=== PATIENT | female | born 1970 | race Caucasian/White ===

== ENCOUNTER 2017-06-13 11:39 | Emergency (ER) | payer BC ==
[2017-06-13 11:43] VITALS: TEMP 97.8
--- NOTE | 2017-06-13 12:29 | ED ---
Extremity Problem HPI - General Chief complaint: Extremity Problem,Nontraumatic Stated complaint: Knee Pain Time Seen by Provider: 06/13/17 11:45 Source: patient, RN notes reviewed Mode of arrival: ambulatory Limitations: no limitations - History of Present Illness Initial comments: 46-year-old female presents emergency department for chief complaint of knee pain. She's been having ongoing knee pain for a while worsen over the last 2 months. She has had [address] Angel. Patient states that she has not seen orthopedic surgeon recently. She states that she stands on her feet 8-10 hours a day at work. He states is progressively getting worse more swollen. She feels some pain behind her left knee. Patient denies any paresthesias. Denies any back pain. - Related Data Home Medications Medication Instructions Recorded Confirmed Naproxen 500 mg PO BID 06/13/17 06/13/17 Previous Rx's Medication Instructions Recorded Hydrocodone/Acetaminophen [Sloan 1 tab PO Q6HR PRN #12 tab 06/13/17 5-325] Ibuprofen [Motrin] 600 mg PO Q8HR PRN #30 tab 06/13/17 predniSONE 50 mg PO DAILY #5 tab 06/13/17 Allergies Allergy/AdvReac Type Severity Reaction Status Date / Time amoxicillin Allergy Unknown Verified 06/13/17 11:53 Review of Systems ROS Statement: Those systems with pertinent positive or pertinent negative responses have been documented in the HPI. ROS Other: All systems not noted in ROS Statement are negative. Past Medical History Past Medical History: Hyperlipidemia Additional Past Medical History / Comment(s): hemorrhoids History of Any Multi-Drug Resistant Organisms: None Reported Past Surgical History: Section, Hysterectomy, Orthopedic Surgery Past Psychological History: Depression Smoking Status: Current every day smoker Past Alcohol Use History: None Reported Past Drug Use History: None Reported General Exam Limitations: no limitations General appearance: alert, in no apparent distress Head exam: Present: atraumatic, normocephalic, normal inspection Eye exam: Present: normal appearance, PERRL, EOMI. Absent: scleral icterus, conjunctival injection, periorbital swelling ENT exam: Present: normal exam, normal oropharynx, mucous membranes moist Neck exam: Present: normal inspection, full ROM. Absent: tenderness, meningismus, lymphadenopathy Respiratory exam: Present: normal lung sounds bilaterally. Absent: respiratory distress, wheezes, rales, rhonchi, stridor Cardiovascular Exam: Present: regular rate, normal rhythm, normal heart sounds. Absent: systolic murmur, diastolic murmur, rubs, gallop, clicks Extremities exam: Present: other (Left knee there is mild swelling, tenderness the popliteal region, laxity noted over the patella, negative neurovascular intact pain with range of motion) Skin exam: Present: warm, dry, intact, normal color. Absent: rash Course Vital Signs 06/13/17 11:41 Temperature 97.8 F Pulse Rate 88 Respiratory 20 Rate Blood Pressure 120/81 O2 Sat by Pulse 99 Oximetry Medical Decision Making - Medical Decision Making 46-year-old female presents from chief complaint of knee pain. Patient has moderate pressure arthritic changes primarily medial aspect. Patient also has Oden's cyst confirmed on ultrasound. Patient referred to on-call orthopedics Dr. Rob. Patient was given a work note for today she is advised to rest, ice and elevate she'll wear knee brace and return for worsening symptoms. There is no evidence of DVT. Disposition Clinical Impression: Osteoarthritis of left knee, Bakers cyst Disposition: HOME SELF-CARE Condition: Stable Instructions: Knee Pain (ED) Additional Instructions: Please return to the Emergency Department if symptoms worsen or any other concerns. Prescriptions: Hydrocodone/Acetaminophen [Sloan 5-325] 1 tab PO Q6HR PRN #12 tab PRN Reason: Pain Ibuprofen [Motrin] 600 mg PO Q8HR PRN #30 tab PRN Reason: Pain predniSONE 50 mg PO DAILY #5 tab Is patient prescribed a controlled substance at d/c from ED?: Yes If prescribed controlled substance>3 days was MAPS reviewed?: No When asked, does pt state using other controlled substances?: No Referrals: Nonstaff,Physician [REFERRING] - 1-2 days Zurdo Rob MD [Medical Doctor] - 1-2 days Time of Disposition: 13:43
[2017-06-13] MEDS ORDERED: Acetaminophen-Codeine 300-30mg TAB PO STA (12:43)
[2017-06-13] MEDS ORDERED: IBUPROFEN 800 MG TAB PO STA (12:43)
--- NOTE | 2017-06-13 12:53 | XR ---
EXAMINATION TYPE: XR knee complete LT DATE OF EXAM: 06/13/2017 CLINICAL HISTORY: Left knee swelling TECHNIQUE: Three views of the left knee are obtained. COMPARISON: None. FINDINGS: There is no acute fracture/dislocation evident in left knee. Small subchondral cyst is see n and marginal osteophytes are seen of the medial tibial plateau at its most medial aspect. Mild medi al compartment joint space narrowing is also seen. There is a small to moderate suprapatellar joint e ffusion. No radiopaque foreign body. IMPRESSION: 1. No acute fracture or dislocation in the left knee. 2. Small to moderate suprapatellar joint effusion. 3. Medial compartment arthropathy.
--- NOTE | 2017-06-13 13:11 | US ---
EXAMINATION TYPE: US venous doppler duplex LE LT DATE OF EXAM: 06/13/2017 1:03 PM COMPARISON: NONE CLINICAL HISTORY: Pain. Left leg pain SIDE PERFORMED: Left TECHNIQUE: The lower extremity deep venous system is examined utilizing real time linear array sonog faby with graded compression, doppler sonography and color-flow sonography. VESSELS IMAGED: External Iliac Vein (EIV) Common Femoral Vein Deep Femoral Vein Greater Saphenous Vein * Femoral Vein Popliteal Vein Small Saphenous Vein * Proximal Calf Veins (* superficial vessels) Grayscale, color doppler, spectral doppler imaging performed of the deep veins of the left lower extr emity. There is normal flow, compressibility, vascular waveforms. Left Leg: Negative for DVT Within the left popliteal fossa, there is a cystic area visualized measuring 3.3 x 1.7 x 1.3 cm. Poss ible Oden's cyst IMPRESSION: 1. No sonographic evidence of deep venous thrombosis within the left lower extremity. 2. Complex fluid collection within the popliteal fossa, likely representing a Oden/popliteal fossa c yst and measuring up to 3.3 cm.
[2017-06-13 13:50] VITALS: BP 120/71; PULSE 80; RESP 16
== END 2017-06-13 13:43 | disposition home or self-care (01) ==
LOC: EC 11:39
DX: M17.12 Unilateral primary osteoarthritis, left knee (principal); M71.22 Synovial cyst of popliteal space [Baker], left knee; F17.200 Nicotine dependence, unspecified, uncomplicated; Z98.890 Other specified postprocedural states; Z79.1 Long term (current) use of non-steroidal anti-inflammatories (NSAID); Z88.0 Allergy status to penicillin; Z53.20 Procedure and treatment not carried out because of patient's decision for unspecified reasons
CPT/HCPCS: 99284